=== PATIENT | male | born 1975 | race Caucasian/White ===

== ENCOUNTER 2019-01-23 05:45 | Emergency (ER) | payer OTHER ==
[~2019-01-23] VITALS: Ht 182.9 cm; Wt 136.1 kg
[~2019-01-23 05:45] MED LIST: ADVIL200 MG PO; AMOXICILLIN/POTASSIU; CIPRO250 M1 PO; CLEOCIN HCL300 MG; FLAGYL 250 MG250 MG PO; FLOMAX PO; FLONASE 0.05%50 MCG NASAL; GABAPENTIN 100100 MG; HYDROCODONE-APA1 TA1; IBUPROFEN 600600 M1 PO; IBUPROFEN 800800 M1 PO; IBUPROFEN 800800 MG PO; LEVAQUIN 500 M500 MG PO; NEURONTIN 300300 M1 PO; NOHOMEMEDICATIONS; NORCO 5-325 TA1 EACH PO; NORFLEX100 MG PO; NORVASC5 MG PO; OXYCONTIN10 M1 PO; PENICILLIN V P500 MG PO; PERCOCET 5-3251 EACH PO; PHENERGAN 25 MG25 M1 PO; PROMETHAZINE12.5 M1 PO; ROBAXIN 750 MG750 M1 PO; TOPROL XL25 MG PO; WELLBUTRIN SR150 MG PO; ZESTORETIC 20-1 EAC3 PO; ZOFRAN ODT4 MG PO; ZOLOFT50 MG PO
[2019-01-23] MEDS ORDERED: PHENERGAN 25 MG25 M1 PO (07:08)
[2019-01-23 07:22] VITALS: BP 194/115
== END 2019-01-23 07:19 | disposition home or self-care (01) ==
LOC: M.ERS 05:45
DX: G43.909 Migraine, unspecified, not intractable, without status migrainosus (principal); F17.210 Nicotine dependence, cigarettes, uncomplicated; I10 Essential (primary) hypertension; Z88.8 Allergy status to other drugs, medicaments and biological substances; Z88.1 Allergy status to other antibiotic agents; Z90.89 Acquired absence of other organs